=== PATIENT | female | born 1965 | race American Indian/Alaskan Native ===

== ENCOUNTER 2017-12-15 19:34 | Emergency (ER) | payer BC ==
[2017-12-15 20:03] VITALS: BMI 32.5
--- NOTE | 2017-12-15 22:28 | ED PDOC ---
Arrival/HPI - General Chief Complaint: Abnormal Skin Integrity Time Seen by Provider: 12/15/17 21:35 Historian: Patient - History of Present Illness Narrative History of Present Illness (Text): 12/15/17 22:25 52yr old female presents today with right lower dental pain since yesterday. pt states last night she started to develop pain and swelling to the right lower gum line. pt states she has been having issues with the tooth in the past. pt denies fever/chills. no trismus or drooling. no headaches, dizziness or weakness. pt states she has appointment scheduled with dentist in 2 days but couldnt take the pain anymore. pt states she has been taking motrin without improvement. Symptom Onset: Gradual Symptom Course: Unchanged Quality: Throbbing Severity Level: 7 Past Medical History - Provider Review Nursing Documentation Reviewed: Yes - Travel History Have you recently traveled outside [place] w/in the past 3 mons?: No - Infectious Disease Hx of Infectious Diseases: None - Cardiac Hx Cardiac Disorders: Yes Hx Hypertension: Yes - Neurological HX Cerebrovascular Accident: No - HEENT Hx HEENT Disorder: No - Endocrine/Metabolic Hx Diabetes Mellitus Type 1: No - Hematological/Oncological Hx Cirrhosis: No - Integumentary Hx Eczema: No - Musculoskeletal/Rheumatological Hx Osteoporosis: No - Gastrointestinal Hx Colostomy: No - Genitourinary/Gynecological Hx Genitourinary Disorders: No - Psychiatric Hx Emotional Abuse: No Hx Physical Abuse: No Hx Substance Use: No - Surgical History Hx Section: Yes Other/Comment: right wrist - Anesthesia Hx Anesthesia: Yes Hx Anesthesia Reactions: No - Suicidal Assessment Feels Threatened In Home Enviroment: No Family/Social History - Physician Review Nursing Documentation Reviewed: Yes Family/Social History: Unknown Family HX Smoking Status: Never Smoked Hx Alcohol Use: Yes Hx Substance Use: No Hx Substance Use Treatment: No Allergies/Home Meds Allergies/Adverse Reactions: Allergies No Known Allergies Allergy (Verified 12/15/17 20:03) Home Medications: Home Meds Medication Instructions Recorded Confirmed amLODIPine [Norvasc] 10 mg PO DAILY 12/15/17 12/15/17 Review of Systems - Review of Systems Constitutional: absent: Fatigue, Fevers Respiratory: absent: SOB, Cough Cardiovascular: absent: Chest Pain, Palpitations Gastrointestinal: absent: Abdominal Pain, Nausea, Vomiting Genitourinary Female: absent: Dysuria, Frequency, Hematuria Musculoskeletal: absent: Arthralgias Skin: absent: Rash, Pruritis Neurological: absent: Headache, Dizziness Psychiatric: absent: Anxiety, Depression Physical Exam Vital Signs Reviewed: Yes Vital Signs Temp Pulse Resp BP Pulse Ox 12/15/17 20:04 98.4 F 71 18 146/88 97 Temperature: Afebrile Blood Pressure: Normal Pulse: Regular Respiratory Rate: Normal Appearance: Positive for: Well-Appearing, Non-Toxic, Comfortable Pain Distress: None Mental Status: Positive for: Alert and Oriented X 3 - Systems Exam Head: Present: Atraumatic, Swelling Mouth: Present: Moist Mucous Membranes, Normal Lips, Normal Tounge. No: Drooling, Trismus, Normal Teeth (tenderness noted over the right lower gumline; + minimal edema. + ttp over 28th tooth. ) Pharnyx: Present: Normal. No: ERYTHEMA, EXUDATE, TONSILS ENLARGED, Peritonsilar Swelling, Uvular Deviation, Muffled/Hoarse Voice Neck: Present: Normal Range of Motion, Trachea Midline. No: Lymphadenopathy Respiratory/Chest: Present: Clear to Auscultation, Good Air Exchange. No: Respiratory Distress, Accessory Muscle Use Cardiovascular: Present: Regular Rate and Rhythm, Normal S1, S2. No: Murmurs Abdomen: No: Tenderness Neurological: Present: GCS=15, Speech Normal Skin: Present: Warm, Dry, Normal Color. No: Rashes Psychiatric: Present: Alert, Oriented x 3 Medical Decision Making ED Course and Treatment: 12/16/17 00:28 Patient is nontoxic well-appearing in no distress with stable vital signs No trismus or drooling, moist mucous membranes clindamycin Toradol tramadol Patient reassessment: Patient is feeling better after medications. I advised follow-up with the dentist within the next 2 days. I advised immediate return is symptoms worsen persist or if new concerning symptoms develop Patient verbalizes understanding of discharge instructions and need for immediate followup. Impression: dental abscess Motrin every 6 hours as needed for pain tramadol; 1 tablet every 6 hours as needed for moderate to severe pain; may cause drowsiness. Clindamycin 1 tablet 3 times daily x 10 days Follow-up with the dentist within the next 2 days Return immediately if symptoms worsen persist or if new concerning symptoms develop 12/16/17 00:29 - Medication Orders Current Medication Orders: Discontinued Medications Clindamycin HCl (Cleocin) 300 mg PO STAT STA PRN Reason: Protocol Stop: 12/15/17 21:37 Last Admin: 12/15/17 22:00 Dose: 300 mg Ketorolac Tromethamine (Toradol) 60 mg IM STAT STA Stop: 12/15/17 21:37 Last Admin: 12/15/17 22:00 Dose: 60 mg MAR Pain Assessment Document 12/15/17 22:00 IT (Rec: 12/15/17 22:00 IT [id number]) Pain Reassessment Is this a pain reassessment? No IM Administration Charges Document 12/15/17 22:00 IT (Rec: 12/15/17 22:00 IT [id number]) Injection Site MAR Injection Site Right Deltoid Charges for Administration # of IM Administrations 1 Tramadol HCl (Ultram) 50 mg PO STAT STA Stop: 12/15/17 21:37 Last Admin: 12/15/17 22:00 Dose: 50 mg MAR Pain Assessment Document 12/15/17 22:00 IT (Rec: 12/15/17 22:00 IT [id number]) Pain Reassessment Is this a pain reassessment? No Sleep Is patient sleeping during reassessment? No Presence of Pain Presence of Pain Yes Pain Scale Used Pain Scale Used Numeric Disposition/Present on Arrival - Present on Arrival Any Indicators Present on Arrival: No History of DVT/PE: No History of Uncontrolled Diabetes: No Urinary Catheter: No History of Decub. Ulcer: No History Surgical Site Infection Following: None - Disposition Have Diagnosis and Disposition been Completed?: Yes Diagnosis: Dental abscess Disposition: HOME/ ROUTINE Disposition Time: 22:23 Patient Plan: Discharge Condition: GOOD Discharge Instructions (ExitCare): Dental Abscess (ED) Additional Instructions: Motrin every 6 hours as needed for pain tramadol; 1 tablet every 6 hours as needed for moderate to severe pain; may cause drowsiness. Clindamycin 1 tablet 3 times daily x 10 days Follow-up with the dentist within the next 2 days Return immediately if symptoms worsen persist or if new concerning symptoms develop Prescriptions: Clindamycin [Cleocin] 300 mg PO TID #21 cap Ibuprofen [Motrin] 600 mg PO Q6H PRN #20 tab PRN Reason: pain/fever reduction traMADol [Ultram] 50 mg PO Q6H PRN #6 tab PRN Reason: moderate to severe pain Referrals: Tino Huynh, [Staff Provider] - Follow up with primary Neal Apodaca DMD [Staff Provider] - Follow up with primary Ehsan Singleton DMD [Non-Staff] - Follow up with primary Forms: [employer] ([place] Citizen), WORK NOTE
[2017-12-15 22:36] VITALS: BP 135/78; PULSE 82; RESP 17; TEMP 98.1; O2SAT 98
== END 2017-12-15 22:35 | disposition home or self-care (01) ==
LOC: ED 19:34
DX: K04.7 Periapical abscess without sinus (principal); I10 Essential (primary) hypertension
CPT/HCPCS: 96372; 99282; J1885